=== PATIENT | female | born 2000 | race Caucasian/White ===

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

== ENCOUNTER 2021-01-22 20:01 | Emergency (ER) | payer OTHER ==
[2021-01-22 20:26] LABS: RAPID STREP SCREEN Negative (Negative)
[2021-01-22] MEDS ORDERED: AMOXICILLIN 250 MG CAPSULE PO STA (21:25)
--- NOTE | 2021-01-22 21:26 | ED Physician Documentation ---
PD HPI HEENT - Stated complaint Stated Complaint: THROAT PX - Chief complaint Chief Complaint: Heent - History obtained from History obtained from: Patient - Additional information Additional information: Patient comes emergency department chief complaint of sore throat for the last 3 days. She states that she has had chills, but no fever. She has not had any other upper respiratory symptoms, such as rhinorrhea or cough. No nausea or vomiting. Patient denies difficulty breathing. She states that her throat does feel little more full when she lays back, however. Patient complains of pain with swallowing. No other complaints at this time. Review of Systems Ten Systems: 10 systems reviewed and negative Constitutional: reports: Chills. denies: Fever Eyes: reports: Reviewed and negative Ears: reports: Reviewed and negative Nose: reports: Reviewed and negative Throat: reports: Sore throat, Swollen tonsils Cardiac: reports: Reviewed and negative Respiratory: reports: Reviewed and negative GI: reports: Reviewed and negative : reports: Reviewed and negative Skin: reports: Reviewed and negative Musculoskeletal: reports: Reviewed and negative Neurologic: reports: Reviewed and negative Psychiatric: reports: Reviewed and negative Endocrine: reports: Reviewed and negative Immunocompromised: reports: Reviewed and negative PD PAST MEDICAL HISTORY - Present Medications Home Medications: Ambulatory Orders Medication Instructions Recorded Confirmed Amoxicillin 500 mg PO TID 7 Days #21 cap 01/22/21 predniSONE [Deltasone] 60 mg PO DAILY 5 Days #15 tablet 01/22/21 - Allergies Allergies/Adverse Reactions: Allergies Allergy/AdvReac Type Severity Reaction Status Date / Time No Known Drug Allergies Allergy Verified 01/22/21 20:07 - Social History Does the pt smoke?: No Smoking Status: Never smoker PD ED PE NORMAL - Vitals Vital signs reviewed: Yes - General General: Alert and oriented X 3, No acute distress, Well developed/nourished - HEENT HEENT: Atraumatic, PERRL, EOMI, Moist mucous membranes, Other (Deeply erythematous and grossly enlarged right tonsil with extensive exudates. Left tonsil is somewhat erythematous with exudates as well, though not as enlarged as right. No asymmetry of the soft palate. Posterior pharynx is grossly patent. No uvular edema.) - Neck Neck: Supple, no meningeal sign, Other (Moderate right anterior cervical lymphadenopathy. Mild left anterior cervical lymphadenopathy.) - Cardiac Cardiac: RRR, No murmur - Respiratory Respiratory: Clear bilaterally - Abdomen Abdomen: Soft, Non tender, Non distended - Derm Derm: Normal color, Warm and dry, No rash - Extremities Extremities: No deformity - Neuro Neuro: Alert and oriented X 3, grocery stocker 2-12 intact, Normal speech - Psych Psych: Normal mood, Normal affect Results - Vitals Vitals: Vital Signs - 24 hr 01/22/21 01/22/21 20:04 21:43 Temperature 36.9 C 36.9 C Heart Rate 76 79 Respiratory 14 16 Rate Blood Pressure 128/69 125/65 O2 Saturation 100 100 Oxygen O2 Source Room air - Labs Labs: Laboratory Tests 01/22/21 20:10 Group A Strep Rapid Negative PD MEDICAL DECISION MAKING - ED course Complexity details: reviewed results, re-evaluated patient, considered differential, d/w patient ED course: The patient's rapid Strep test was negative; however, her throat exam overwhelmingly suggested tonsillitis and I suspected that most likely, and she had a strain of strep other than a group a. I did not feel that the patient ought to wait for antibiotics until the culture came back, given the appearance of her right tonsil, and so I did treat her for tonsillitis with amoxicillin. She received first dose in the emergency department, as well as a prescription for the same. I also gave her prescription for prednisone to help with the discomfort. I have advised the patient that she may end up needing to follow-up with ENT if she develops these infections recurrently; however, at this point in time, there is no evidence of a peritonsillar abscess and the patient is deemed stable for discharge home. We have discussed the usual indications for return. Departure - Departure Disposition: 01 Home, Self Care Clinical Impression: Tonsillitis Condition: Stable Instructions: ED Tonsillitis Prescriptions: Amoxicillin 500 mg PO TID 7 Days #21 cap predniSONE [Deltasone] 60 mg PO DAILY 5 Days #15 tablet Comments: Your right tonsil is very swollen and red and obviously infected. Your left to nsil appears to have a lesser degree of infection. There is no swelling of the roof of your mouth on one side or the other to indicate a pus pocket/abscess at this time. You undoubtedly need antibiotics and although your strep test initially has come back negative, a culture has been performed, the results of which will come back tomorrow. This is more specific and will show us the exact kind of bacteria that is affecting your throat. Due to the degree of infection involving your right tonsil currently it is best if we start antibiotics now, but we may need to change the antibiotics once we get your culture results back, if it shows a count of bacteria that is better treated with a different antibiotic. Most of the bacteria in the throat will do well with the antibiotic currently prescribed, however. You have been given your first dose here. Your next dose will be due tomorrow morning. You may take it in the prednisone that has been prescribed to help with some of the discomfort in your throat, and may also take ibuprofen with this. Please drink plenty of fluids and take your antibiotics as directed. We will call you if your culture result indicates that you will need to be on a different antibiotic. If you are not feeling better within the next week, or if you feel that your throat is becoming progressively worse, please call the ENT specialist's office to set up a follow-up appointment. Discharge Date/Time: 01/22/21 21:44
[2021-01-22 21:44] VITALS: BP 125/65
== END 2021-01-22 21:44 | disposition home or self-care (01) ==
LOC: ED 20:01
DX: J03.90 Acute tonsillitis, unspecified (principal)
CPT/HCPCS: 87070; 87430; 99283; 99284; A9270

== ENCOUNTER 2022-07-13 08:00 | Outpatient (CLI) | payer OTHER ==
[2022-07-13 16:07] LABS: BILIRUBIN,URINE NEGATIVE (NEGATIVE); GLUCOSE, URINE (UA) NEGATIVE (NEGATIVE); KETONES,URINE (UA) NEGATIVE (NEGATIVE); LEUKOCYTE ESTERASE, URINE NEGATIVE (NEGATIVE); NITRITE,URINE NEGATIVE (NEGATIVE); OCCULT BLOOD,URINE NEGATIVE (NEGATIVE); PROTEIN,URINE NEGATIVE (NEGATIVE); UROBILINOGEN,URINE 0.2 (NORMAL) E.U./dL (NORMAL)
[2022-07-13 16:10] LABS: CLARITY,URINE CLEAR (CLEAR)
[2022-07-13 16:16] LABS: RBC,URINE None Seen /HPF (0-5); SQUAMOUS EPITHELIAL CELL,UR MOD Squamous (<= Few); WBC,URINE 0-3 /HPF (0-5)
[2022-07-13 16:17] LABS: BACTERIA,URINE Rare /HPF (None Seen)
== END 2022-07-13 23:59 | disposition home or self-care (01) ==
LOC: LAB 08:00
PROVIDERS: ATTEND Nurse Practitioner
DX: Z34.90 Encounter for supervision of normal pregnancy, unspecified, unspecified trimester (principal)
CPT/HCPCS: 81001; 87086

== ENCOUNTER 2022-07-20 18:37 | Outpatient (CLI) | payer OTHER ==
--- NOTE | 2022-07-21 03:28 | Ultrasound Report ---
PROCEDURE: OB First Trimester INDICATIONS: POSITIVE TEST OUTSIDE/PRIOR DATING DATA: Last menstrual period (LMP): 05/23/2022. LMP-based estimated date of delivery (YAMILKA): 02/27/2023. First dating scan (date and location): 07/20/2022. Estimated date of delivery (YAMILKA) from first dating scan: 02/26/2023. TECHNIQUE: Real-time scanning was performed of the fetus and maternal pelvic organs, with image documentation. COMPARISON: None. FINDINGS: Embryo: There is an intrauterine with a gestational sac, yolk sac, and pole demonstr ated. There is a crown-rump length of approximately 1.9 cm corresponding to gestational age of 8 week s 3 days. There is heart motion with a rate of 178 bpm. There is a small amount of heart motion with a rate of 1 78 bpm. Measurement variability in dating: +/- 4 weeks by LMP, +/- 7 days by mean sac diameter (use before 6 weeks gestation if crown-rump length not able to be measured), +/- 5 days by crown-rump length (6-12 weeks gestation). Maternal organs: Ovaries appear within normal size limits. There is a thick-walled cyst within the r ight ovary likely representing a corpus luteal cyst. IMPRESSION: 1. Single living intrauterine with calculated gestational age of 8 weeks 3 days correspondi ng to an estimated delivery date of 02/26/2023. Reviewed by: Simeon Swift MD on 07/21/2022 3:27 AM PST Approved by: Simeon Swift MD on 07/21/2022 3:27 AM PST Station ID: [id number]
== END 2022-07-20 18:38 | disposition home or self-care (01) ==
LOC: DI 18:37
PROVIDERS: ATTEND Nurse Practitioner
DX: Z34.81 Encounter for supervision of other normal pregnancy, first trimester (principal); Z3A.08 8 weeks gestation of pregnancy

== ENCOUNTER 2022-08-06 15:12 | Outpatient (CLI) | payer OTHER ==
[2022-08-06 15:46] LABS: BASOPHILS % (AUTO) 0.5 %; EOSINOPHILS # (AUTO) 0.1 10^3/uL (0.0-0.7); EOSINOPHILS % (AUTO) 0.8 %; HGB - HEMOGLOBIN 13.6 g/dL (12.0-16.0); LYMPHOCYTES # (AUTO) 1.3 10^3/uL (1.5-3.5); LYMPHOCYTES % (AUTO) 16.2 %; MEAN CORPUSCULAR HEMOGLOBIN 29.7 pg (27.0-31.0); MEAN CORPUSCULAR HGB CONC 34.9 g/dL (32.0-36.0); MEAN CORPUSCULAR VOLUME 85.2 fL (81.0-99.0); MEAN PLATELET VOLUME 9.8 fL (7.9-10.8); MONOCYTES # (AUTO) 0.6 10^3/uL (0.0-1.0); MONOCYTES % (AUTO) 7.7 %; NEUTROPHILS # (AUTO) 5.9 10^3/uL (1.5-6.6); NEUTROPHILS % (AUTO) 74.5 %; PLT - PLATELET COUNT 299 10^3/uL (130-450); RED BLOOD COUNT 4.58 10^6/uL (4.20-5.40); RED CELL DISTRIBUTION WIDTH 11.5 % (12.0-15.0); WHITE BLOOD COUNT 7.9 x10^3/uL (4.8-10.8)
[2022-08-07 05:09] LABS: HBsAG SCREEN Negative (Negative); HCV AB 0.2 s/co ratio (0.0-0.9)
[2022-08-07 06:09] LABS: RPR Non Reactive (Non Reactive)
[2022-08-07 08:10] LABS: VARICELLA-ZOSTER AB IGG 711 index (Immune >165)
[2022-08-07 10:08] LABS: HIV SCREEN 4TH GENERATION Non Reactive (Non Reactive)
== END 2022-08-06 15:13 | disposition home or self-care (01) ==
LOC: LAB 15:12
PROVIDERS: ATTEND Nurse Practitioner
DX: Z34.90 Encounter for supervision of normal pregnancy, unspecified, unspecified trimester (principal)
CPT/HCPCS: 36415; 85025; 86592; 86762; 86787; 86803; 86850; 86900; 86901; 87340; 87389

== ENCOUNTER 2022-10-11 18:48 | Outpatient (CLI) | payer OTHER ==
--- NOTE | 2022-10-12 09:54 | Ultrasound Report ---
PROCEDURE: OB Detailed Eval INDICATIONS: SUPERVISION OF OUTSIDE/PRIOR DATING DATA: Last menstrual period (LMP): 05/23/2022. LMP-based estimated date of delivery (YAMILKA): 02/27/2023. First dating scan (date and location): 07/20/2022. Estimated date of delivery (YAMILKA) from first dating scan: 02/26/2023. TECHNIQUE: Real-time scanning was performed of the fetus, with image documentation and biometric measurements. Endovaginal scanning: Not performed COMPARISON: 07/20/2022 FINDINGS: General: A single living intrauterine gestation is present. Presentation: Vertex Placenta: Placental position is anterior, without previa. Amniotic fluid index: 17.5 cm, normal for gestational age. heart rate: 155 beats per minute. Maternal cervical canal: 5.0 cm long; normal length is 2.5 cm or more. biometrics: Biparietal diameter: 5.18 cm, 21 weeks 5 days Head circumference: 18.9 cm, 21 weeks 1 day Abdominal circumference: 16.9 cm, 21 weeks 6 days Femur length 3.6 cm, 21 weeks 4 days Estimated gestational age from initial scan: 20 weeks 2 days Composite gestational age from present scan: 21 weeks 3 days Estimated weight and percentile: 444 g, 98th percentile Measurement variability in biometric dating: +/- 10 days from 12-20 weeks gestation, +/- 2 weeks from 20-30 weeks gestation, +/- 3 weeks at 30 weeks gestation or later. Anatomic survey: Neuro: Ventricles are normal at less than 10 mm. Cisterna magna is normal at 3-11 mm. Cerebellum i s normal in size and morphology. Nuchal skin fold: Normal at less than 6 mm between 14 and 20 weeks gestational age. Face: Nose and lips, facial profile are normal. Spine: Suboptimal visualization. Heart: 4-chambered heart is present, with normal ventricular outflow tracts. Diaphragm: Diaphragm is intact. Stomach: Left-sided stomach is present. Kidneys: No hydronephrosis. Normal is less than 5 mm in 2nd trimester, less than 7 mm in 3rd trimester. Cord: 3 vessel cord has orthotopic insertion. Bladder: Normal in size. Extremities: All 4 extremities are visualized. IMPRESSION: 1. Single living intrauterine in vertex presentation. 2. Estimated weight is at the 98th percentile. 3. spine is suboptimally visualized. Attention on follow-up is recommended. 4. Otherwise normal second trimester anatomy survey. Reviewed by: Fuad Nelson MD on 10/12/2022 9:53 AM PST Approved by: Fuad Nelson MD on 10/12/2022 9:53 AM PST Station ID: [id number]
== END 2022-10-11 18:49 | disposition home or self-care (01) ==
LOC: DI 18:48
PROVIDERS: ATTEND Obstetrics & Gynecology
DX: Z34.92 Encounter for supervision of normal pregnancy, unspecified, second trimester (principal); Z3A.21 21 weeks gestation of pregnancy

== ENCOUNTER 2022-11-22 22:19 | Outpatient (CLI) | payer OTHER ==
--- NOTE | 2022-11-23 23:04 | Ultrasound Report ---
PROCEDURE: OB F/U or Repeat INDICATIONS: SUPERVISION OF OUTSIDE/PRIOR DATING DATA: Last menstrual period (LMP): 05/23/2022. LMP-based estimated date of delivery (YAMILKA): 02/27/2023. First dating scan (date and location): 07/20/2022. Estimated date of delivery (YAMILKA) from first dating scan: 02/26/2023. The below data below was generated using the ultrasound YAMILKA of 02/26/2023 TECHNIQUE: Real-time scanning was performed of the fetus, with image documentation and biometric measurements. COMPARISON: OB ultrasound 10/11/2022 FINDINGS: General: A single living intrauterine gestation is present. Presentation: For Placenta: Placental position is anterior, without previa. Amniotic fluid index: 11.9 cm, within normal limits for gestational age. Largest pocket 4.9 cm heart rate: 157 beats per minute. Maternal cervical canal: 3.5 cm long; normal length is 2.5 cm or more. biometrics: Estimated gestational age from initial scan: 26 weeks 2 days Other: Spine is within normal limits. Nuchal cord is incidentally noted. IMPRESSION: Single live intrauterine with ultrasound gestational age of 26 weeks 2 days. Spine is within normal limits. Nuchal cord is noted. Reviewed by: Yasmeen Paul MD on 11/23/2022 11:03 PM PDT Approved by: Yasmeen Paul MD on 11/23/2022 11:03 PM PDT Station ID: [id number]
== END 2022-11-22 22:20 | disposition home or self-care (01) ==
LOC: DI 22:19
PROVIDERS: ATTEND Obstetrics & Gynecology
DX: Z34.92 Encounter for supervision of normal pregnancy, unspecified, second trimester (principal)

== ENCOUNTER 2022-12-11 15:05 | Outpatient (CLI) | payer OTHER ==
[2022-12-11 18:19] LABS: HCT - HEMATOCRIT 36.4 % (37.0-47.0); HGB - HEMOGLOBIN 12.3 g/dL (12.0-16.0); MEAN CORPUSCULAR HEMOGLOBIN 31.5 pg (27.0-31.0); MEAN CORPUSCULAR HGB CONC 33.8 g/dL (32.0-36.0); MEAN CORPUSCULAR VOLUME 93.3 fL (81.0-99.0); MEAN PLATELET VOLUME 10.5 fL (7.9-10.8); RED BLOOD COUNT 3.9 10^6/uL (4.20-5.40); RED CELL DISTRIBUTION WIDTH 11.9 % (12.0-15.0); WHITE BLOOD COUNT 12.5 x10^3/uL (4.8-10.8)
== END 2022-12-11 15:06 | disposition home or self-care (01) ==
LOC: LAB.N 15:05
PROVIDERS: ATTEND Obstetrics & Gynecology
DX: Z34.90 Encounter for supervision of normal pregnancy, unspecified, unspecified trimester (principal); Z36.89 Encounter for other specified antenatal screening
CPT/HCPCS: 36415; 82950; 85027

== ENCOUNTER 2023-01-07 11:28 | Outpatient (CLI) | payer OTHER ==
[2023-01-07 11:42] LABS: HCT - HEMATOCRIT 36.9 % (37.0-47.0); HGB - HEMOGLOBIN 12.6 g/dL (12.0-16.0); MEAN CORPUSCULAR HEMOGLOBIN 30.8 pg (27.0-31.0); MEAN CORPUSCULAR HGB CONC 34.1 g/dL (32.0-36.0); MEAN CORPUSCULAR VOLUME 90.2 fL (81.0-99.0); MEAN PLATELET VOLUME 10.1 fL (7.9-10.8); RED BLOOD COUNT 4.09 10^6/uL (4.20-5.40); WHITE BLOOD COUNT 11.3 x10^3/uL (4.8-10.8)
[2023-01-07 11:53] LABS: ALBUMIN 3.2 g/dL (3.2-5.5); ALBUMIN/GLOBULIN RATIO 0.9 (1.0-2.2); BILIRUBIN,TOTAL 0.7 mg/dL (0.2-1.0); CREATININE 0.4 mg/dL (0.4-1.0); POTASSIUM 3.6 mmol/L (3.5-5.0); TOTAL PROTEIN 6.8 g/dL (6.7-8.2)
[2023-01-07 11:55] LABS: CREATININE,URINE 83.6 mg/dL; PROTEIN/CREATININE RATIO,URINE 0.1 (<=0.2)
== END 2023-01-07 11:29 | disposition home or self-care (01) ==
LOC: LAB 11:28
PROVIDERS: ATTEND Obstetrics & Gynecology
DX: R03.0 Elevated blood-pressure reading, without diagnosis of hypertension (principal)
CPT/HCPCS: 36415; 80053; 82570; 84156; 85027

== ENCOUNTER 2023-02-06 08:00 | Outpatient (CLI) | payer OTHER | END 2023-02-06 23:59 | disposition home or self-care (01) | LOC: LAB 08:00 | PROVIDERS: ATTEND Obstetrics & Gynecology | DX: Z36.85 Encounter for antenatal screening for Streptococcus B (principal) | CPT/HCPCS: 87797 ==

== ENCOUNTER 2023-02-18 08:00 | Outpatient (CLI) | payer OTHER ==
[2023-02-18 21:20] LABS: CHLAMYDIA TRACHOMATIS DNA NEGATIVE (NEGATIVE); NEISSERIA GONORRHOEAE DNA NEGATIVE (NEGATIVE); TRICHOMONAS VAGINALIS DNA NEGATIVE (NEGATIVE)
== END 2023-02-18 23:58 | disposition home or self-care (01) ==
LOC: LAB.WC 08:00
PROVIDERS: ATTEND Obstetrics & Gynecology
DX: Z11.3 Encounter for screening for infections with a predominantly sexual mode of transmission (principal)
CPT/HCPCS: 87491; 87591; 87661

== ENCOUNTER 2023-02-21 12:55 | Outpatient (CLI) | payer OTHER ==
[2023-02-21 13:19] VITALS: BP 130/74
--- NOTE | 2023-02-21 16:23 | PROVIDER PROGRESS NOTE ---
- HPI Chief Complaint: Labor Check Current : Current EDU 02/27/23 Gestation 39 Weeks and 1 Days 1 Para 0 Vital Signs Temperature 98.1 F 02/21/23 13:09 Heart Rate 92 02/21/23 13:09 Respiratory Rate 16 02/21/23 13:09 Blood Pressure 130/74 02/21/23 13:09 O2 Saturation 100 02/21/23 13:09 Temperature 98.1 F 02/21/23 13:09 Heart Rate 92 02/21/23 13:09 Respiratory Rate 16 02/21/23 13:09 Blood Pressure 130/74 02/21/23 13:09 O2 Saturation 100 02/21/23 13:09 If not protocol: Oxygen Flow, liters/minute - Procedures OB Procedure Performed: NST Diagnosis/Indication for NST: Other (flase labor) NST Procedure: NST Procedure Start Date 02/21/23 Start Time 13:01 Stop Time 13:30 Vibroacoustic Stimulation Used No - Plan Plan: Patient is a 22-year-old at 39 weeks 1 day gestation presenting to triage for contractions. She has good movement, no leaking, no vaginal bleeding. She denies headache, right upper quadrant pain, changes in vision. Physical Exam Constitutional: alert, no acute distress, well hydrated, well developed, well nourished, appropriate dress. Cardiovascular: Regular rate and rhythm. Respiratory: no respiratory distress. Abdomen: nondistended, nontender, no guarding. Psych: affect and mood appropriate, normal interaction, good eye contact. SVE in clinic: 0/0/-3 FHT: 135 bpm baseline, moderate variability, accelerations present, no decelerations. [place]: Every 3 to 6 minutes Reactive NST. Assessment and plan 22-year-old at 39 weeks 1 day gestation with contractions Early labor Patient came for evaluation, although lion, not painful. Declined repeat cervical exam. Patient feels comfortable going home and thinks the contractions not strong enough to change her cervix. Will come back when they increase. Also discussed labor precautions as well as rupture of membranes. Likely coming for elective induction of labor tomorrow if she is not labor tonight.
== END 2023-02-21 14:45 | disposition home or self-care (01) ==
LOC: WFO 12:55 → FBP 12:58 → WFO 14:45
PROVIDERS: ATTEND Obstetrics & Gynecology
DX: O47.1 False labor at or after 37 completed weeks of gestation (principal); Z3A.39 39 weeks gestation of pregnancy
CPT/HCPCS: 59025; 99215

== ENCOUNTER 2023-02-22 09:09 | Inpatient (IN) | payer OTHER ==
[2023-02-22] MEDS ORDERED: TERBUTALINE 1 MG/ML VIAL SUBQ PRN (10:39)
[2023-02-22] MEDS ORDERED: CARBOPROST TROMETHAMINE 250 MCG/ML AMP IM PRN (10:39)
[2023-02-22] MEDS ORDERED: SODIUM CHLORIDE FLUSH 0.9% 10 ML SYRINGE IVP PRN (10:39)
[2023-02-22] MEDS ORDERED: NIFEdipine 10 MG CAPSULE PO PRN (10:39)
[2023-02-22] MEDS ORDERED: LABETALOL 20 MG/4 ML SYRINGE IVP PRN ×3 (10:39)
[2023-02-22] MEDS ORDERED: miSOPROStoL 200 MCG TABLET PR PRN (10:39)
[2023-02-22] MEDS ORDERED: lidocaine 1% 20 ML MDV ID PRN (10:39)
[2023-02-22] MEDS ORDERED: hydrALAZINE INJ 20 MG/ML VIAL IVP PRN ×2 (10:39)
[2023-02-22] MEDS ORDERED: OXYTOCIN/SODIUM CHLORIDE 500 ML IV PRN (10:39)
[2023-02-22] MEDS ORDERED: TRANEXAMIC ACID IN NACL 1,000 MG/100 ML BAG IV PRN (10:39)
[2023-02-22] MEDS ORDERED: miSOPROStoL 200 MCG TABLET BC PRN (10:39)
[2023-02-22] MEDS ORDERED: OXYTOCIN 10 UNIT/ML VIAL IM PRN (10:39)
[2023-02-22] MEDS ORDERED: METHYLERGONOVINE 0.2 MG/ML VIAL IM PRN (10:39)
--- NOTE | 2023-02-22 10:43 | HISTORY & PHYSICAL EXAMINATION ---
Admit History - Visit Reason Visit Reason: Other (Induction of labor) - : 1 Parity: 0 Risk/History: positive: None Smoking Status: Never smoker - Mother's Labs Mother's Blood Type: positive: B Mother's RH: positive: Positive GBS: positive: Group B Step Negative Rubella Status: positive: Immune - Other Maternal History Other Maternal History: HPI: 22-year-old G1, P0 at 39 weeks 2 days gestation here for induction of labor. She has good movement. Denies loss of fluid. No BANKS/BV or RUQP. No vaginal bleeding. Denies nausea and vomiting. Denies urinary urgency or dysuria. All other symptoms reviewed and were negative except per HPI. Course LMP: 05/23/2022 YAMILKA by LMP: 02/27/2023 07/20/2022 @ 8+3 wks CW dates Final YAMILKA: 02/26/2023 Hesitancy with male providers: [facility], but patient declined. She would like to stay with us. Offered referral to another provider in our office, but she is comfortable staying and will likely be more comfortable if I end up delivering her anyway. Will try to limit cervical exams as anyone checking her worries immensely. Size greater than dates: EFW 01/17/23 showed 2553 g, 68%. B pos/Rubella immune VZV:immune Genetic testing: [id number]- negative- male FAS:Normal anatomy scan with placenta posterior without previa. Three-vessel cord. EFW 444 g, 98 percentile. COLTON normal at 17.5 centimeters. Glucola 108 Influenza: 06/2022 TDAP 12/10 COVID: Vaccinated x 2 GBS @ 37.0 wks 02/06- COLLECTED HSV: Denies in self or partner. Breast pump Rx-Formula feeding MOD: pp contraception: Declines. Previous OCP and Patch. pap:declined after education. Does not want pap smear. Initial GC/CT: Declined until 38 weeks visit where it was negative. PMH Denies significant medical history PSH Appendectomy: 2018 OB History G1, P0 SH Denies tobacco, alcohol, drugs Family History Father: Alcoholism Maternal grandmother: Diabetes Maternal grandfather: Heart disease Allergies No known drug allergies Medications No medications Physical exam: General: Alert, oriented, no acute distress Head: Normal cephalic atraumatic Eyes: PERRLA, extraocular motions intact. Respiratory: Normal rate of respiration. No accessory muscle use, normal respiratory effort. Cardiovascular: Regular rate and rhythm Abdomen: Gravid, nontender, nondistended Extremities: Normal range of motion Neuro: Oriented x3. Normal movements Psych: Appropriate mood and affect. Normal judgment and insight SVE: Declined exam today, but closed yesterday in clinic FHT: 125 bpm baseline, moderate variability, accelerations present, no decelerations. [place]: Irregular Plan 22-year-old G1, P0 at 39 weeks 2 days gestation here for induction of labor at term 1. Induction of labor -Admit to L&D, admit labs, epidural at patient's request -Begin with misoprostol 25 mcg buccal -Uncomfortable cervical exams, so will limit cervical checks 2. 39 weeks gestation Meds/Allgy - Home Medications Home Medications: Ambulatory Orders Medication Instructions Recorded Confirmed Amoxicillin 500 mg PO TID 7 Days #21 cap 01/22/21 predniSONE [Deltasone] 60 mg PO DAILY 5 Days #15 tablet 01/22/21 - Allergies Allergies/Adverse Reactions: Allergies Allergy/AdvReac Type Severity Reaction Status Date / Time No Known Drug Allergies Allergy Verified 01/22/21 20:07 Plan for Labor - Plan For Labor I expect patient to be DC'd or transferred within 96 hours.: Yes
[2023-02-22 10:52] LABS: BASOPHILS % (AUTO) 0.4 %; EOSINOPHILS # (AUTO) 0.1 10^3/uL (0.0-0.7); EOSINOPHILS % (AUTO) 0.7 %; HCT - HEMATOCRIT 36.6 % (37.0-47.0); HGB - HEMOGLOBIN 12.4 g/dL (12.0-16.0); LYMPHOCYTES # (AUTO) 1.1 10^3/uL (1.5-3.5); LYMPHOCYTES % (AUTO) 12.7 %; MEAN CORPUSCULAR HEMOGLOBIN 30.2 pg (27.0-31.0); MEAN CORPUSCULAR HGB CONC 33.9 g/dL (32.0-36.0); MEAN CORPUSCULAR VOLUME 89.3 fL (81.0-99.0); MEAN PLATELET VOLUME 11.3 fL (7.9-10.8); MONOCYTES # (AUTO) 0.8 10^3/uL (0.0-1.0); MONOCYTES % (AUTO) 9.4 %; NEUTROPHILS # (AUTO) 6.4 10^3/uL (1.5-6.6); NEUTROPHILS % (AUTO) 76.4 %; PLT - PLATELET COUNT 222 10^3/uL (130-450); RED CELL DISTRIBUTION WIDTH 13.1 % (12.0-15.0); WHITE BLOOD COUNT 8.4 x10^3/uL (4.8-10.8)
[2023-02-22] MEDS: miSOPROStoL 100 MCG TABLET BC SCH ×2 (11:14→16:10)
[2023-02-22 15:23] LABS: RUPTURE OF MEMBRANES PLUS NEGATIVE (NEGATIVE)
[2023-02-22] MEDS: SODIUM CHLORIDE FLUSH 0.9% 10 ML SYRINGE IVP SCH ×2 (16:10→23:40)
--- NOTE | 2023-02-23 00:08 | PROVIDER PROGRESS NOTE ---
Labor Progress Note - Uterine Monitoring Uterine Monitoring Mode: positive: External toco Contraction Frequency (min/apart): 1-4 Contraction Intensity: positive: Moderate to strong - Monitoring Monitor Mode: positive: External ultrasound Heart Rate Baseline: 125 Heart Rate Variability: positive: Moderate (6-25 bmp) Accelerations: positive: Present, 15x15 Decelerations: positive: None Strip Review: positive: Category I - Labor Progress Note Labor Progress Note/Additional Text: Patient has received 2 doses of misoprostol, the last at 1610. She continues to contract every 1 to 4 minutes and complains of moderate pain with contractions, up to 03/18. Declined cervical exam. Jayesh too frequently for misoprostol. Declines cervical ripening balloon. Will allow patient to get in the bath. It has been approximately 8 hours since her last dose. If contractions have not spaced out, we can consider oxytocin, but I will recommend a cervical exam prior. This is likely an unfavorable cervix still and would increase her failure rate. Can also continue returning home and allowing more time prior to future attempt at induction.
[2023-02-23] MEDS: miSOPROStoL 100 MCG TABLET BC SCH ×3 (01:45→14:33)
[2023-02-23] MEDS: LACTATED RINGERS 1,000 ML IV SCH ×2 (05:09→22:05)
--- NOTE | 2023-02-23 11:06 | PROVIDER PROGRESS NOTE ---
Labor Progress Note - Uterine Monitoring Uterine Monitoring Mode: positive: External toco : 3-4 Contraction Intensity: positive: Moderate Uterine Resting Tone: positive: Soft - Monitoring Monitor Mode: positive: External ultrasound Heart Rate Baseline: 135 Heart Rate Variability: positive: Moderate (6-25 bmp) Accelerations: positive: Present, 15x15 Decelerations: positive: None Strip Review: positive: Category I - Vaginal Exam Dilation (in cm): 1.5 Effacement (%): 75 Station: -3 Cervical Position: Posterior - Labor Progress Note Labor Progress Note/Additional Text: Patient has runs of contractions too close together, so we had to delay the last dose of misoprostol again. Will receive 1 additional dose now, which will be her fourth. If this happens again, will switch to balloon catheter and oxytocin four hours after current dose. Discussed with patient we have the option of returning home and restarting induction another day, but patient declines returning home. Discussed the risks of oxytocin with unfavorable cervix as it is increased risk of section. Patient says she is willing to consider this after this dose of misoprostol. She is not averse to a section, we discussed the risks of major surgery.
--- NOTE | 2023-02-23 14:48 | PROVIDER PROGRESS NOTE ---
Labor Progress Note - Uterine Monitoring Uterine Monitoring Mode: positive: External toco Contraction Frequency (min/apart): 3-6 Contraction Intensity: positive: Moderate to strong Uterine Resting Tone: positive: Soft - Monitoring Monitor Mode: positive: External ultrasound Heart Rate Baseline: 135 Heart Rate Variability: positive: Moderate (6-25 bmp) Accelerations: positive: Present, 15x15 Decelerations: positive: None Strip Review: positive: Category I - Vaginal Exam Dilation (in cm): Patient declined - Labor Progress Note Labor Progress Note/Additional Text: Patient declined cervical exam. Was lion too frequently several times, currently was able to receive misoprostol. Willing to start oxytocin, but hesitant about balloon. Plan to receive 1 more dose of misoprostol then check cervix. Possible amniotomy versus oxytocin at that time. Currently using "spinning babies"to help adjust and assist in labor.
[2023-02-23] MEDS ORDERED: ONDANSETRON 4 MG/2 ML VIAL IVP PRN ×2 (19:22→23:04)
[2023-02-23] MEDS ORDERED: OXYTOCIN/SODIUM CHLORIDE 500 ML IV SCH (20:00)
[2023-02-23] MEDS: fentaNYL 100 MCG/2 ML VIAL IVP PRN ×2 (20:30→21:48)
[2023-02-23] MEDS ORDERED: ROPIVACAINE 0.2% 200 MG/100 ML BAG EP ONE (22:16)
--- NOTE | 2023-02-23 22:34 | PROVIDER PROGRESS NOTE ---
Labor Progress Note - Uterine Monitoring Uterine Monitoring Mode: positive: External toco Contraction Frequency (min/apart): 2-5 Contraction Intensity: positive: Strong - Monitoring Monitor Mode: positive: External ultrasound Heart Rate Baseline: 125 Heart Rate Variability: positive: Moderate (6-25 bmp) Accelerations: positive: Present, 15x15 Decelerations: positive: None Strip Review: positive: Category I - Vaginal Exam Dilation (in cm): Patient declined - Labor Progress Note Labor Progress Note/Additional Text: Patient was started on oxytocin after 5 doses misoprostol with favorable cervix. Contractions became too uncomfortable for patient, so this was reduced. Patient getting epidural for pain control. Anticipate .
--- NOTE | 2023-02-23 23:01 | ANESTHESIA ---
Pre-Anesthesia VS, & Labs - Diagnosis active labor - Procedure labor epidural Vital Signs: Temp Pulse Resp BP Pulse Ox O2 Flow Rate 36.7 C 02/22/23 10:25 Height: 5 ft 8 in Weight (kg): 102.058 kg Body Mass Index: 34.2 BMI Classification: Obese - NPO Other - Is Patient ?: Yes - Lab Results Current Lab Results: Laboratory Tests 02/22/23 09:45: WBC 8.4, RBC 4.10 L, Hgb 12.4, Hct 36.6 L, MCV 89.3, MCH 30.2, M CHC 33.9, RDW 13.1, Plt Count 222, MPV 11.3 H, Neut # (Auto) 6.4, Lymph # (Auto) 1.1 L, [place] # (Auto) 0.8, Eos # (Auto) 0.1, Baso # (Auto) 0.0, Absolute Nucleated RBC 0.00, Nucleated RBC % 0.0 02/22/23 09:45: Blood Type B POSITIVE, Antibody Screen NEGATIVE Fish Bones: 02/22/23 09:45 Home Medications and Allergies Active Medications Carboprost Tromethamine (Carboprost Tromethamine 250 Mcg/Ml Amp) 250 mcg IM .ONCE PRN PRN Reason: Hemorrhage Fentanyl (Fentanyl 100 Mcg/2 Ml Vial) 50 mcg IVP Q1H PRN PRN Reason: Severe Pain (score 7-10) Last Admin: 02/23/23 21:48 Dose: 50 mcg Hydralazine HCl (Hydralazine Inj 20 Mg/Ml Vial) 10 mg IVP .ONCE PRN; Protocol PRN Reason: SBP> or= 160 OR DBP> or= 110 Hydralazine HCl (Hydralazine Inj 20 Mg/Ml Vial) 5 - 10 mg IVP Q20M PRN; Protocol PRN Reason: SBP> or= 160 OR DBP> or= 110 Oxytocin/Sodium Chloride (Pitocin/Sodium Chloride) 500 mls @ 999 mls/hr IV PRN PRN; Protocol PRN Reason: POST- HEMORR PREVENTION Tranexamic Acid (Tranexamic 1,000 Mg/100ml-Nacl) 1,000 mg in 100 mls @ 600 mls/hr IV Q30M PRN PRN Reason: EBL >1200mL and within 3hr Lactated Ringer's (Lr) 1,000 mls @ 125 mls/hr IV .Q8H [facility] Last Admin: 02/23/23 22:05 Dose: 125 mls/hr Oxytocin/Sodium Chloride (Pitocin/Sodium Chloride) 500 mls @ 1 mls/hr IV TITR [facility]; Protocol Last Titration: 02/23/23 21:42 Dose: 0 milliunit/min, 0 mls/hr Labetalol HCl (Labetalol 20 Mg/4 Ml Syringe) 20 mg IVP .ONCE PRN; Protocol PRN Reason: SBP> or= 160 OR DBP> or= 110 Labetalol HCl (Labetalol 20 Mg/4 Ml Syringe) 20 - 80 mg IVP Q10M PRN; Protocol PRN Reason: SBP> or= 160 OR DBP> or= 110 Labetalol HCl (Labetalol 20 Mg/4 Ml Syringe) 20 - 40 mg IVP Q10M PRN; Protocol PRN Reason: SBP> or= 160 OR DBP> or= 110 Lidocaine HCl (Lidocaine 1% 20 Ml Mdv) 20 ml ID .ONCE PRN PRN Reason: PERINEAL REPAIR Stop: 02/25/23 10:40 Methylergonovine Maleate (Methylergonovine 0.2 Mg/Ml Vial) 0.2 mg IM .ONCE PRN PRN Reason: Hemorrhage Misoprostol (Misoprostol 200 Mcg Tablet) 600 mcg BC .ONCE PRN PRN Reason: Hemorrhage Misoprostol (Misoprostol 200 Mcg Tablet) 800 mcg CA .ONCE PRN PRN Reason: Hemorrhage Misoprostol (Misoprostol 100 Mcg Tablet) 25 mcg BC Q4H [facility] Last Admin: 02/23/23 14:33 Dose: 25 mcg Nifedipine (Nifedipine 10 Mg Capsule) 10 - 20 mg PO Q20M PRN; Protocol PRN Reason: SBP> or= 160 OR DBP> or= 110 Ondansetron HCl (Ondansetron 4 Mg/2 Ml Vial) 4 mg IVP Q6HR PRN PRN Reason: Nausea / Vomiting Oxytocin (Oxytocin 10 Unit/Ml Vial) 10 unit IM .ONCE PRN PRN Reason: Step One if no IV access. Sodium Chloride (Sodium Chloride Flush 0.9% 10 Ml Syringe) 10 ml IVP Q8H [facility] Last Admin: 02/22/23 23:40 Dose: 10 ml Sodium Chloride (Sodium Chloride Flush 0.9% 10 Ml Syringe) 10 ml IVP PRN PRN PRN Reason: NEEDED PER PROVIDER ORDERS Last Admin: 02/23/23 05:19 Dose: 10 ml Terbutaline Sulfate (Terbutaline 1 Mg/Ml Vial) 0.25 mg SUBQ .ONCE PRN PRN Reason: Tachystole Allergies/Adverse Reactions: Allergies Allergy/AdvReac Type Severity Reaction Status Date / Time No Known Drug Allergies Allergy Verified 01/22/21 20:07 Anes History & Medical History - Anesthetic History Anesthesia Complications: reports: No previous complications Family history of Anesthesia Complications: Denies Family history of Malignant Hyperthermia: Denies - Medical History Pulmonary: reports: None Smoking Status: Never smoker - Obstetrical History : 1 Parity: 0 Events: reports: None Exam General: Alert, Oriented x3, Cooperative Dental: WNL Mouth Openin Fingerbreadth Neck Mobility: Normal Mallampati classification: III Respiratory: Lungs clear Cardiovascular: Regular rate Plan Anesthesia Type: Epidural Consent for Procedure(s) Verified and Reviewed: Yes Code Status: Attempt Resuscitation ASA classification: 2-Mild systemic disease Is this case an emergency?: No
[2023-02-23] MEDS ORDERED: NALOXONE 0.4 MG/ML VIAL IVP PRN (23:04)
[2023-02-23] MEDS ORDERED: ePHEDrine 50 MG/ML VIAL IVP PRN (23:04)
[2023-02-23] MEDS ORDERED: NALBUPHINE 10 MG/ML AMP IVP PRN (23:04)
[2023-02-23] MEDS ORDERED: diphenhydrAMINE INJ 50 MG/ML VIAL IVP PRN (23:04)
[2023-02-23] MEDS ORDERED: METOCLOPRAMIDE 10 MG/2 ML VIAL IVP PRN (23:04)
[2023-02-23] MEDS ORDERED: ROPIVACAINE 0.2% 200 MG/100 ML BAG EP PRN (23:04)
--- NOTE | 2023-02-24 01:33 | PROVIDER PROGRESS NOTE ---
Labor Progress Note - Uterine Monitoring Uterine Monitoring Mode: positive: External toco Contraction Frequency (min/apart): 3-4 Contraction Intensity: positive: Strong - Monitoring Monitor Mode: positive: External ultrasound Heart Rate Baseline: 135 Heart Rate Variability: positive: Moderate (6-25 bmp) Accelerations: positive: Present, 15x15 Decelerations: positive: Late, Variable, Prolonged (>2x10 min), Intermittent (<50% x20 min) Strip Review: positive: Category II - Labor Progress Note Labor Progress Note/Additional Text: Epidural for pain relief. Patient had spontaneous rupture of membranes and subsequent prolonged deceleration. Oxytocin was stopped. Having intermittent late/variable decelerations. Last exam patient was 6 cm dilated. Declined cervical exam this time. Discussed IUPC and patient declines as this is 'not necessary.' Discussed amnioinfusion ability patient says if she does not need one right now and she does not want the catheter. Discussed that we cannot start amnioinfusion in a timely manner, and may make section more likely. Patient continues to decline.
[2023-02-24] MEDS ORDERED: SIMETHICONE CHEW 80 MG TABLET PO PRN (04:32)
[2023-02-24] MEDS ORDERED: DOCUSATE SODIUM 100 MG CAPSULE PO PRN (04:32)
--- NOTE | 2023-02-24 04:37 | DELIVERY NOTE ---
Delivery Note - Labor Labor: positive: Induced by oxytocin - Cervical Ripening Method Cervical Ripening Method: positive: Misoprostil - Presentation Presentation: positive: KILLIAN - right occiput anterior - Nuchal Cord Nuchal Cord: positive: Present, Reduced - Anesthetic Anesthetic Type: - Amniotic Fluid Description Amniotic Fluid Description: positive: Clear - Laceration Laceration: positive: 2nd degree - Suture Suture Type: positive: Vicryl Suture Size: positive: 3-0 - Delivery Outcome Delivery Outcome: positive: Livebirth - [place]: positive: Bulb syringe, Warmed, [place] used sex: positive: Male - Cord Cord: positive: 3 vessels - Placenta Placenta: positive: Intact - Estimated Blood Loss Estimated Blood Loss (in cc): 250 - Post Delivery Events Post Delivery Events: positive: No post delivery events - Delivery Comments (Free Text/Narrative) Delivery Comments (Free Text/Narrative): Preoperative Diagnoses 39 weeks gestation Induction of labor Postoperative Diagnoses Same Delivery of live [place] Status post spontaneous vaginal delivery Patient desired induction of labor at 39 weeks gestation. She received misoprostol for cervical ripening, but frequently had frequent, painful contractions, so doses were spaced apart. She eventually had good pattern and favorable cervix and a switch to oxytocin. She received an epidural for pain control and had spontaneous rupture of membranes. After this, she had intermittent category 2 tracing but progressed quickly to complete and delivery team was called. Delivery Summary: Patient was placed in the dorsal lithotomy position. Upon maternal pushing the head was delivered atraumatically followed by the anterior shoulder, posterior shoulder, then the remainder of the 's body. A male was delivered with APGARS of 8 at 1 minute and 9 at 5 minutes. The was placed on its mother's chest . After the cord finished pulsating, the umbilical cord was clamped times two and cut. The placenta delivered intact with three vessel cord. Placenta was not sent to pathology. Thirty units of Pitocin were added to the IV fluid and allowed to run freely. Uterine massage was performed until uterus was deemed firm. Upon inspection of the perineum, a second-degree midline laceration was noted and repaired with a running suture of 3-0 Vicryl. One [id number] additional stitch was required for hemostasis uterus again massaged and found to be firm. Needle and sponge counts were correct. Patient was stable and allowed to recover in L&D room. was stable and remained in room with mother. weight is pending at this time.
[2023-02-24] MEDS ORDERED: ACETAMINOPHEN 500 MG TABLET PO SCH (05:00)
[2023-02-24] MEDS ORDERED: LACTATED RINGERS 1,000 ML IV SCH (05:00)
[2023-02-24] MEDS ORDERED: IBUPROFEN 600 MG TABLET PO SCH (05:00)
[2023-02-24] MEDS: SODIUM CHLORIDE FLUSH 0.9% 10 ML SYRINGE IVP SCH (11:18)
[2023-02-24] MEDS: LACTATED RINGERS 1,000 ML IV SCH (11:18)
--- NOTE | 2023-02-25 08:25 | PROVIDER PROGRESS NOTE ---
Subjective - Prog Note Date Prog Note Date: 02/25/23 Prog Note Time: 08:23 - Subjective Subjective: Patient is PPD#1 s/p . Patient is doing well this morning. Ambulating, tolerating regular diet. Spontaneously voiding. Lochia < menses. Objective - Vital Signs/Intake & Output Reviewed Vital Signs: Yes Vital Signs: Vital Signs x48h Temp Pulse Resp BP Pulse Ox 02/25/23 04:48 99.5 F 66 16 126/77 100 Intake & Output: Intake & Output 02/22/23 02/23/23 02/24/23 02/25/23 23:59 23:59 23:59 23:59 Intake Total 2099.451 1769.900 Output Total 1341 Balance 2099.451 428.900 - Objective General Appearance: positive: No acute distress Respiratory: positive: Breath sounds nml Cardiovascular: positive: Regular rate & rhythm Abdomen: positive: Non-tender (firm fundus below umbilicus) Extremities: positive: Pedal edema (2+ bilateral edema) Neurologic/Psychiatric: positive: Oriented x3 - Lab Results Fish Bones: 02/22/23 09:45 Assessment/Plan - Problem List (1) Vaginal delivery Impression: PPD#1: uncomplicated course. Discharge to home today.
--- NOTE | 2023-02-25 08:27 | DISCHARGE SUMMARY ---
Discharge Summary Admit Date: 02/22/23 Discharge Date: 02/25/23 Discharging Provider: Katelin Primary Care Provider: Cm Code Status: Attempt Resuscitation Condition at Discharge: Good Discharge Disposition: 01 Home, Self Care - DIAGNOSES Admission Diagnoses: vaginal delivery - HPI History of Present Illness: Patient was admitted for induction of labor. - HOSPITAL COURSE Hospital Course: Patient received cytotec and oxytocin for induction of labor. She had an uncomp licated vaginal delivery and course and was discharged to home on day 1. - ALLERGIES Allergies/Adverse Reactions: Allergies Allergy/AdvReac Type Severity Reaction Status Date / Time No Known Drug Allergies Allergy Verified 01/22/21 20:07 - MEDICATIONS Home Medications: Ambulatory Orders Medication Instructions Recorded Confirmed Amoxicillin 500 mg PO TID 7 Days #21 cap 01/22/21 predniSONE [Deltasone] 60 mg PO DAILY 5 Days #15 tablet 01/22/21 - PHYSICAL EXAM AT DISCHARGE General Appearance: positive: No acute distress Respiratory: positive: Breath sounds nml Cardiovascular: positive: Regular rate & rhythm Abdomen: positive: Non-tender (firm fundus below the umbilicus) Extremities: positive: Pedal edema (2+) Neurologic/Psychiatric: positive: Oriented x3 - LABS Result Diagrams: 02/22/23 09:45 - FOLLOW UP Follow Up: Follow up with Dr. Pabon this week
[2023-02-25 12:49] VITALS: BP 123/72
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
== END 2023-02-25 14:16 | disposition home or self-care (01) | DRG 807 ==
LOC: WFO 09:09 → FBP 09:11 → WFO 10:38 → FBP 10:39 → OBSVTOIN 02-23 19:52
PROVIDERS: ADMIT Obstetrics & Gynecology; ATTEND Obstetrics & Gynecology Obstetrics
PROC: 3E0DXGC Introduction of Other Therapeutic Substance into Mouth and Pharynx, External Approach (ICD-10-PCS; 2023-02-22)
PROC: 10E0XZZ Delivery of Products of Conception, External Approach (ICD-10-PCS; principal; 2023-02-23)
PROC: 0KQM0ZZ Repair Perineum Muscle, Open Approach (ICD-10-PCS; 2023-02-23)
DX: O70.1 Second degree perineal laceration during delivery (principal); Z37.0 Single live birth; O69.81X0 Labor and delivery complicated by cord around neck, without compression, not applicable or unspecified; Z3A.39 39 weeks gestation of pregnancy; O76 Abnormality in fetal heart rate and rhythm complicating labor and delivery
CPT/HCPCS: 84112; 85025; 86850; 86900; 86901; A9270; J7120